=== PATIENT | female | born 1990 | race African-American/Black ===

== ENCOUNTER 2016-11-27 18:45 | Emergency (ER) | payer MEDICAID ==
[2016-11-27] MEDS ORDERED: CEFTRIAXONE 1 GM VIAL ONE ×2 (20:10→20:14)
[2016-11-27] MEDS ORDERED: ONDANSETRON ODT 4 MG TAB ONE (20:10)
== END 2016-11-27 20:38 | disposition home or self-care (01) ==
LOC: ER 18:45
DX: N10 Acute pyelonephritis (principal)
CPT/HCPCS: 36415; 80053; 81001; 81025; 83690; 85025; 87088; 96372